=== PATIENT | male | born 1980 | race Caucasian/White ===

== ENCOUNTER 2016-09-04 20:05 | Emergency (ER) | payer BC, OTHER ==
[2016-09-04 20:13] VITALS: BP 127/87
--- NOTE | 2016-09-04 20:18 | EDM.PDOC ---
ED HPI GENERAL MEDICAL PROBLEM - General Chief Complaint: General Stated Complaint: Crush Injury to L hand Time Seen by Provider: 09/04/16 20:10 Source of Information: Reports: Patient. Denies: Old Records (No [facility] records available) History Limitations: Reports: No Limitations - History of Present Illness INITIAL COMMENTS - FREE TEXT/NARRATIVE: The patient was brought to the emergency room via transport vehicle from [facility] for evaluation of a Worker's Compensation injury, which occurred at 19:40 hours this evening. The patient experienced a laceration and crush injury of his left thumb when a coworker accidentally hit the lever of a hydraulic holding press/ pin, which resulted in the above crush injury. The patient is right-handed. No history of foreign body with thumb wrapped prior to arrival, however no medications given to this point. He has not injured this digit in the past, although he did have a biopsy from this thumb in the distant past as below. He does complain of throbbing 8/10 thumb pain with some paresthesias in this digit , however no other complaints of neurological deficits, injuries, etc. Onset: Today, Sudden Onset Date: 09/04/16 Onset Time: 19:40 Duration: Constant Location: Reports: Upper Extremity, Left. Denies: Head, Face, Neck, Chest, Abdomen, Back, Pelvis, Upper Extremity, Right, Lower Extremity, Left, Lower Extremity, Right, Radiates to Quality: Reports: Throbbing Severity: Moderate Improves with: Reports: Rest Worsens with: Reports: Movement Context: Reports: Trauma (As above) Associated Symptoms: Denies: Confusion, Chest Pain, Cough, Diaphoresis, Fever/ Chills, Nausea/Vomiting, Seizure, Shortness of Breath, Syncope, Weakness Treatments [employer]: Reports: Other (see below) (As above) Left Hand Pain Score (Numeric/FACES): 8 - Related Data Allergies Allergy/AdvReac Type Severity Reaction Status Date / Time No Known Allergies Allergy Verified 09/04/16 20:07 Home Meds: Home Meds Cetirizine [ZyrTEC] 10 mg PO DAILY 09/04/16 [History] Past Medical History HEENT History: Reports: Allergic Rhinitis, Other (See Below). Denies: Cataract , Glaucoma, Hard of Hearing, Impaired Vision, Macular Degeneration, Retinal Detachment Other HEENT History: History of nasal fracture which did require reduction at age 19 Cardiovascular History: Reports: None, Other (See Below). Denies: Afib, Aneurysm, Arrhythmia, Blood Clots/VTE/DVT, CAD, Heart Failure, Heart Murmur, High Cholesterol, Hypertension, CA, Syncope Other Cardiovascular History: Uncertain about his cholesterol status Respiratory History: Reports: Intubation, Previous. Denies: Asthma, COPD, Intubation, Difficult, PE, Pneumothorax, Sleep Apnea, TB Gastrointestinal History: Reports: GERD, Jaundice, Other (See Below). Denies: Celiac Disease, Cholelithiasis, Chronic Constipation, Chronic Diarrhea, Fecal Incontinence, Gastritis, GI Bleed, Hepatitis, Hiatal Hernia, Inflammatory Bowel Disease, Irritable Bowel Syndrome, Pancreatitis, PUD Other Gastrointestinal History: jaundice Genitourinary History: Reports: None. Denies: Acute Renal Failure, Chronic Renal Insuffiency, Renal Calculus, STD, Urinary Incontinence, UTI, Recurrent Musculoskeletal History: Reports: Arthritis, Back Pain, Chronic, Fracture, Neck Pain, Chronic, Osteoarthritis, Other (See Below). Denies: Amputation, Gout, RA , SLE Other Musculoskeletal History: Nasal fracture as above Neurological History: Reports: None. Denies: Cerebral Aneurysms, Concussion, CVA, Headaches, Chronic, Head Trauma, Migraines, MS, Parkinson's, Seizure, TIA Psychiatric History: Reports: None. Denies: Abuse, Victim of, ADD, ADHD, Anxiety, Depression, Psych Hospitalization(s), PTSD, Suicide Attempt, Suicidal Ideation Endocrine/Metabolic History: Reports: None. Denies: Diabetes, Type I, Diabetes , Type II, Hypothyroidism Hematologic History: Reports: None. Denies: Anemia, Blood Transfusion(s), Iron Deficiency Immunologic History: Reports: None. Denies: AIDS, HIV, SLE Oncologic (Cancer) History: Reports: None. Denies: Basal Cell Carcinoma, Hodgkin's Lymphoma, Leukemia, Lymphoma, Malignant Melanoma, Non-Hodgkin's Lymphoma, Squamous Cell Carcinoma Dermatologic History: Reports: None. Denies: Eczema, Psoriasis - Infectious Disease History Infectious Disease History: Reports: Chicken Pox. Denies: C-Difficile, Measles , Meningitis, Mononucleosis, MRSA, Mumps, Pertussis (Whooping Cough), Rheumatic Fever, Rubella, Scarlet Fever, Shingles, TB, VRE - Past Surgical History Head Surgeries/Procedures: Reports: None HEENT Surgical History: Reports: None. Denies: Adenoidectomy, Cataract Surgery , Eye Surgery, Laser Surgery, LASIK, Myringotomy w Tube(s), Naso-Sinus Surgery, Oral Surgery, Tonsillectomy Cardiovascular Surgical History: Reports: None. Denies: Varicose, Vascular Surgery Respiratory Surgical History: Reports: None. Denies: Thoracentesis GI Surgical History: Reports: Cholecystectomy, EGD, Other (See Below). Denies: Appendectomy, Colonoscopy, Hernia, Abdominal, Hernia, Inguinal, Hernia Repair/ Other Other GI Surgeries/Procedures: EGD in about 2009 with subsequent laparoscopic cholecystectomy in 2009 Male Surgical History: Reports: Circumcision, Other (See Below). Denies: Vasectomy Other Male Surgeries/Procedures: Circumcision as an infant Endocrine Surgical History: Reports: None. Denies: Thyroid Biopsy Neurological Surgical History: Denies: C-Spine, Discectomy, Intracranial, Laminectomy, Lumbar Spine, Sacral Spine, Spinal Fusion, Vertebroplasty Musculoskeletal Surgical History: Reports: None. Denies: Arthroscopic Procedure , Carpal Tunnel, Ganglion Cyst, Hip Replacement, ORIF, Shoulder Surgery Oncologic Surgical History: Reports: None Dermatological Surgical History: Reports: Skin Biopsy, Other (See Below) Other Dermatological Surgeries/Procedures: Biopsy of benign skin rash from the left thumb in 2011 - Past Imaging History Past Imaging History: Reports: CAT Scan (CT scan of the abdomen and pelvis in 2009), HIDA Scan (2009) Social & Family History - Tobacco Use Smoking Status *Q: Former Smoker Years of Tobacco use: 12 Packs/Tins Daily: 0.3 (1/3 can of chewing tobacco between ages 15 and 27) Used Tobacco, but Quit: Yes Month Tobacco Last Used: As above Tobacco Use Comment: As above Smoking Cessation Information Provided To Patient: No Second Hand Smoke Education Provided: No - Caffeine Use Caffeine Use: Reports: Coffee (4 cups per day), Tea (1 cup occasional). Denies : Energy Drinks, Soda - Alcohol Use Alcohol Use History: Yes Days Per Week of Alcohol Use: 2 (No previous DWIs, problems with alcohol abuse, etc.) Number of Drinks Per Day: 2 (Usually beer) Total Drinks Per Week: 4 Alcohol Use in Last Twelve Months: Yes Alcohol Use Frequency: Socially - Recreational Drug Use Recreational Drug Use: No Drug Use in Last 12 Months: No Recreational Drug Type: Denies: Amphetamines (Speed), Cocaine, Heroin, LSD (Acid ), Marijuana/Hashish, Methamphetamine, Morphine - Living Situation & Occupation Living situation: Reports: (Second in 2015, one child and one adopted child from first marriage and in 2006), with Family 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 Denies: Fever, Chills, Weakness, Fatigue , Night Sweats, Diaphoresis, Weight Loss HEENT: Reports: No Symptoms. Denies: Contact Lenses, Dental Pain, Ear Pain, Glasses, Hearing Loss, Rhinitis, Sinus Problem, Throat Pain, Vertigo, Vision Change Respiratory: Reports: No Symptoms. Denies: Shortness of Breath, Wheezing, Cough Cardiovascular: Reports: No Symptoms. Denies: Chest Pain, Blood Pressure Problem, Dyspnea on Exertion, Edema, Lightheadedness, Palpitations, Syncope Endocrine: Reports: No Symptoms. Denies: Fatigue GI/Abdominal: Reports: No Symptoms. Denies: Abdominal Pain, Anorexia, Black Stool, Bloody Stool, Constipation, Diarrhea, Difficulty Swallowing, Distension, Hematemesis, Hematochezia, Melena, Nausea, Stool Incontinence, Vomiting : Reports: No Symptoms. Denies: Discharge, Dysuria, Flank Pain, Frequency, Hematuria, Incontinence, Pain, Urgency, Urinary Retention Musculoskeletal: Reports: Hand Pain (Left hand pain). Denies: Neck Pain, Shoulder Pain, Arm Pain, Back Pain, Leg Pain, Joint Pain, Joint Swelling Skin: Reports: Wound (Left hand). Denies: Jaundice, Diaphoresis Neurological: Reports: Numbness, Paresthesia, Tingling (Left thumb). Denies: Confusion, Dizziness, Headache, Syncope, Difficulty Walking, Weakness Psychiatric: Reports: No Symptoms. Denies: Agitation, Anxiety, Confusion, Depression Hematologic/Lymphatic: Reports: No Symptoms Immunologic: Reports: No Symptoms ED EXAM, GENERAL - Physical Exam Exam: See Below Exam Limited By: No Limitations General Appearance: WD/WN, No Apparent Distress Head: Atraumatic, Normocephalic. No: Facial Swelling, Facial Tenderness, Sinus Tenderness Neck: Normal Inspection, Supple, Non-Tender, Full Range of Motion. No: Lymphadenopathy (L), Lymphadenopathy (R), Thyromegaly Respiratory/Chest: No Respiratory Distress, Lungs Clear, Normal Breath Sounds, No Accessory Muscle Use, Chest Non-Tender. No: Pleural Rub, Retractions Cardiovascular: Normal Peripheral Pulses, Regular Rate, Rhythm, No Edema, No Gallop, No JVD, No Murmur, No Rub. No: Gallop/S3, Gallop/S4, Friction Rub Peripheral Pulses: 4+: Radial (L), Radial (R) GI/Abdominal: Normal Bowel Sounds, Soft, Non-Tender, No Organomegaly, No Distention, No Abnormal Bruit, No Mass, Pelvis Stable. No: Guarding (Male) Exam: Deferred Rectal (Males) Exam: Deferred Back Exam: Normal Inspection, Full Range of Motion. No: CVA Tenderness (L), CVA Tenderness (R), Muscle Spasm Extremities: No Pedal Edema, Normal Capillary Refill, Limited Range of Motion ( Left thumb secondary to laceration and injury however no deficits with normal function ), Other (4.5 cm length of length deep irregular laceration over the palmar surface of the proximal phalanx of digit #1 of the left hand with additional multiple superficial abrasions over the dorsal surface of the same digit, evidence of previous 23 centimeter biopsy scar on the extensor surface of the same digit, no foreign body, mild to moderate localized tenderness by palpation, mild ecchymosis surrounding laceration site but no definite acute bleeding, significant tendon/joint, vascular, or nerve involvement) Neurological: Alert, Oriented, CN II-XII Intact, Normal Cognition, Normal Gait, No Motor/Sensory Deficits Psychiatric: Normal Affect, Normal Mood Skin Exam: Warm, Dry, Ecchymosis (As above), Tattoo(s) (Multiple), Wound/ Incision (As above). No: Diaphoretic, Increased Warmth, Lymphangitis, Pallor Lymphatic: No Adenopathy ED GENERAL MEDICAL PROCEDURES - Laceration/Wound Repair Left Lower Finger Lac/wound length in cm: 4.5 Appearance: Superficial, Subcutaneous, Irregular, Clean Distal NVT: Neuro & Vascular Intact, No Tendon Injury Anesthetic Type: Local Local Anesthesia - Lidocaine (Xylocaine): 1% Plain Local Anesthetic Volume: Other (10 mL) Skin Prep: Providone-Iodine (Betadine) Saline irrigation (cc's): 0 Exploration/Debridement/Repair: Wound Explored, in a Bloodless Field, Explored to Base, No Foreign Material Found, Wound Margins Revised, Multiple Flaps Aligned, Other (2 areas of skin flaps removed) Closed with: Sutures Suture Size: 4-0 # of Sutures: 12 Suture Type: Nylon, Interrupted, Simple Drain Placement: No Sterile Dressing Applied: Nurse Tetanus Status Addressed: Yes Complications: No Course - Vital Signs Last Recorded V/S: Last Vital Signs Temp 36.7 C 09/04/16 20:12 Pulse 68 09/04/16 20:12 Resp 16 09/04/16 20:12 BP 127/87 09/04/16 20:12 Pulse Ox 100 09/04/16 20:12 Vital Signs - 24 hr 09/04/16 20:12 Temperature [ 36.7 C Temporal] Pulse, 68 Peripheral [ Pulse Oximetry] Respiratory 16 Rate Blood Pressure 127/87 [Right Upper Arm] O2 Sat by Pulse 100 Oximetry - Orders/Labs/Meds Orders: Active Orders 24 hr Category Date Time Status Vaccines to be Administered [RC] PER UNIT ROUTINE Care 09/04/16 20:19 Active Hand Comp Min 3V Lt [CR] Stat Exams 09/04/16 20:18 Taken Obtain Past Medical Record [OM.PC] Routine Oth 09/04/16 20:18 Active Labs: None Meds: Medications Discontinued Medications Generic Name Dose Route Start Last Admin Trade Name Freq PRN Reason Stop Dose Admin Diphtheria/Tetanus/Acell Pertussis 0.5 ml 09/04/16 20:19 09/04/16 20:35 Adacel IM 09/04/16 20:20 0.5 ml .ONCE ONE Administration Lidocaine HCl 5 ml 09/04/16 20:38 Xylocaine-Mpf 1% INJECT 09/04/16 20:39 ONETIME ONE Lidocaine HCl 5 ml 09/04/16 20:39 Xylocaine-Mpf 1% INJECT 09/04/16 20:40 ONETIME ONE Neomycin/Polymyxin/Bacitracin 1 each 09/04/16 20:39 09/04/16 20:45 Triple Antibiotic Oint TOP 09/04/16 20:40 1 each ONETIME ONE Administration - Radiology Interpretation Free Text/Narrative:: X-rays of the left hand, complete, shows no evidence of fracture, dislocation, etc. Soft tissue injury noted with no evidence of foreign body. Mild to moderate osteoarthritic changes present Departure - Departure Time of Disposition: 21:35 Disposition: Home, Self-Care 01 Condition: Good Clinical Impression: Laceration, Crush injury, Peptic reflux disease Osteoarthritis Qualifiers: Osteoarthritis location: multiple joints Osteoarthritis type: primary Qualified Code(s): M15.0 - Primary generalized (osteo)arthritis Allergic rhinitis Qualifiers: Chronicity: chronic Allergic rhinitis trigger: pollen Allergic rhinitis seasonality: seasonal Qualified Code(s): J30.1 - Allergic rhinitis due to pollen - Discharge Information Instructions: VIS, Diphtheria, Tetanus, and Pertussis (DTaP) - CDC, Laceration Care, Adult, Sutured Wound Care, [id number] Referrals: PCP,Unobtain [Primary Care Provider] - Forms: ED Department Discharge Additional Instructions: 1. Followup with your regular provider in 10-14 days as directed for reevaluation and removal of 12 sutures. 2. Tylenol 650 mg by mouth every 4 hours and/or OTC Aleve 1-2 tabs by mouth every 12 hours with food as directed./needed. 3. Work excuse- See Form 4. Antibacterial soap wash/soak with subsequent antibacterial dressing such as Neosporin, etc. as directed 2 times per day until the wound or laceration site completely heals. Keep the area clean and dry with activity restrictions as discussed. - Problem List & Annotations (1) Laceration SNOMED Code(s): 599794604 Code(s): [id number] - Status: Acute Priority: High Current Visit: Yes Onset Date: 09/04/16 Annotation/Comment:: Excellent results with laceration repair. DTaP given. [place] work excuse and Workmen's Compensation forms were completed. Wound care and activity restrictions were discussed. (2) Crush injury SNOMED Code(s): 668927879 Code(s): T14.8 - OTHER INJURY OF UNSPECIFIED BODY REGION Status: Acute Priority: High Current Visit: Yes Onset Date: 09/04/16 Annotation/Comment: : Despite crush injury no evidence of fracture or dislocation (3) Osteoarthritis SNOMED Code(s): 668665737 Code(s): M19.90 - UNSPECIFIED OSTEOARTHRITIS, UNSPECIFIED SITE Status: Chronic Priority: Medium Current Visit: Yes Annotation/Comment:: Stable by history Qualifiers: Osteoarthritis location: multiple joints Osteoarthritis type: primary Qualified Code(s): M15.0 - Primary generalized (osteo)arthritis (4) Peptic reflux disease SNOMED Code(s): 67900998 Code(s): K21.9 - GASTRO-ESOPHAGEAL REFLUX DISEASE WITHOUT ESOPHAGITIS Status: Chronic Priority: Medium Current Visit: Yes Annotation/Comment:: Stable by history with no current medical therapy required (5) Allergic rhinitis SNOMED Code(s): 45944855 Code(s): J30.9 - ALLERGIC RHINITIS, UNSPECIFIED Status: Chronic Priority : Medium Current Visit: Yes Annotation/Comment:: Stable by history Qualifiers: Chronicity: chronic Allergic rhinitis trigger: pollen Allergic rhinitis seasonality: seasonal Qualified Code(s): J30.1 - Allergic rhinitis due to pollen - Problem List Review Problem List Initiated/Reviewed/Updated: Yes - My Orders Last 24 Hours: My Active Orders 09/04/16 20:18 Hand Comp Min 3V Lt [CR] Stat Obtain Past Medical Record [OM.PC] Routine 09/04/16 20:19 Vaccines to be Administered [RC] PER UNIT ROUTINE - Assessment/Plan Last 24 Hours: My Active Orders 09/04/16 20:18 Hand Comp Min 3V Lt [CR] Stat Obtain Past Medical Record [OM.PC] Routine 09/04/16 20:19 Vaccines to be Administered [RC] PER UNIT ROUTINE Assessment:: As above Plan: As above. Extensive precautions were given to the patient, who is in agreement with the treatment plan. See Patient Instructions for further treatment and plan.
[2016-09-04] MEDS ORDERED: Diphtheria,Pertussis(Acell),Tetanus Vaccine 0.5 ML SDV IM ONE (20:19)
[2016-09-04] MEDS ORDERED: Bacitracin/Neomycin/Polymyxin B Oint 0.9 GM U/D Packet TOP ONE (20:39)
== END 2016-09-04 21:35 | disposition home or self-care (01) ==
LOC: LL.ED 20:05
DX: S67.02XA Crushing injury of left thumb, initial encounter (principal); S61.012A Laceration without foreign body of left thumb without damage to nail, initial encounter; M15.0 Primary generalized (osteo)arthritis; J30.1 Allergic rhinitis due to pollen; K21.9 Gastro-esophageal reflux disease without esophagitis; Z90.49 Acquired absence of other specified parts of digestive tract; Z79.899 Other long term (current) drug therapy; Z87.891 Personal history of nicotine dependence; W23.1XXA Caught, crushed, jammed, or pinched between stationary objects, initial encounter; Y99.0 Civilian activity done for income or pay; Z23 Encounter for immunization
CPT/HCPCS: 12002; 73130-LT; 90471; 90715; 99283